=== PATIENT | female | born 1995 | race Caucasian/White ===

== ENCOUNTER 2022-01-09 13:48 | Emergency (ER) | payer MEDICAID ==
[~2022-01-09] VITALS: Ht 167.6 cm; Wt 73.0 kg
[2022-01-09] MEDS ORDERED: SODIUM CHLORIDE 0.9% 1,000 ML IV ONE ×2 (14:00→19:15)
[2022-01-09 14:23] LABS: BASOPHILS % 0.8 % (0.0-2.0); EOSINOPHILS % 5.1 % (0.0-5.0); HEMATOCRIT. 34.3 % (36.0-48.0); HEMOGLOBIN. 11.6 g/dL (12.0-16.0); LYMPHOCYTES % 30.1 % (20.0-50.0); MEAN CORPUSCULAR HEMOGLOBIN 32.1 pg (28.0-32.0); MEAN CORPUSCULAR VOLUME 94.6 fL (81.0-99.0); MEAN PLATELET VOLUME 8.4 fl (7.4-10.4); MONOCYTES % 5.9 % (2.0-8.0); NEUTROPHILS % 58.1 % (40.0-76.0); PLATELET 195 x1000/uL (130-400); RED BLOOD CELL COUNT 3.62 mill/uL (4.2-5.4); RED CELL DISTRIBUTION WIDTH 12.7 % (11.6-14.6)
[2022-01-09 14:28] LABS: CHLORIDE 111 mEq/L (98-107)
[2022-01-09 14:32] LABS: ETHANOL BLOOD < 10 mg/dL
[2022-01-09 14:33] LABS: HCG SCREEN NEGATIVE
[2022-01-09] MEDS ORDERED: ONDANSETRON HCL 4MG/2ML INJ IV ONE (19:15)
[2022-01-09] MEDS ORDERED: NALO4SPR BOTHNSTRLS (20:10)
[2022-01-09 21:28] VITALS: BP 109/69
== END 2022-01-09 22:51 | disposition home or self-care (01) ==
LOC: EDBD 13:48 → ER 13:48
DX: T40.601A Poisoning by unspecified narcotics, accidental (unintentional), initial encounter (principal); G92.8 Other toxic encephalopathy; E11.65 Type 2 diabetes mellitus with hyperglycemia; Y92.018 Other place in single-family (private) house as the place of occurrence of the external cause
CPT/HCPCS: 36415; 70450; 80053; 80307; 80320; 80329; 84703; 85025; 96361; 96374; 99284; J2405; J7030; G0480

== ENCOUNTER 2022-09-24 22:58 | Emergency (ER) | payer MEDICAID ==
[~2022-09-24] VITALS: Ht 163.8 cm; Wt 58.1 kg
[~2022-09-24 22:58] MED LIST: NALO4SPR BOTHNSTRLS
[2022-09-25 01:03] LABS: BASOPHILS % 0.5 % (0.0-2.0); EOSINOPHILS % 1.3 % (0.0-5.0); HEMATOCRIT. 32.9 % (36.0-48.0); HEMOGLOBIN. 11.1 g/dL (12.0-16.0); LYMPHOCYTES % 13.2 % (20.0-50.0); MEAN CORPUSCULAR HEMOGLOBIN 31.7 pg (28.0-32.0); MEAN CORPUSCULAR VOLUME 94.1 fL (81.0-99.0); MEAN PLATELET VOLUME 7.6 fl (7.4-10.4); MONOCYTES % 5.8 % (2.0-8.0); NEUTROPHILS % 79.2 % (40.0-76.0); PLATELET 368 x1000/uL (130-400); RED BLOOD CELL COUNT 3.49 mill/uL (4.2-5.4); RED CELL DISTRIBUTION WIDTH 12.5 % (11.6-14.6)
[2022-09-25 01:20] LABS: CHLORIDE 105 mEq/L (98-107)
[2022-09-25 01:21] LABS: HCG SCREEN NEGATIVE
[2022-09-25] MEDS ORDERED: KETOROLAC 60MG/2ML VIAL IM ONE (01:45)
[2022-09-25 02:30] LABS: CLARITY URINE CLOUDY (CLEAR); COLOR URINE YELLOW (YELLOW); KETONES URINE 2+ (NEGATIVE); LEUKOCYTE ESTERASE URINE NEGATIVE (NEGATIVE); NITRITE URINE POSITIVE (NEGATIVE); OCCULT BLOOD URINE TRACE (NEGATIVE); PROTEIN URINE TRACE (NEGATIVE); SPECIFIC GRAVITY URINE 1.027 (1.005-1.030)
[2022-09-25 02:43] VITALS: BP 113/70
[2022-09-25] MEDS ORDERED: CEFTRIAXONE SODIUM 1 G/VIAL IM ONE (02:45)
[2022-09-25] MEDS ORDERED: LIDOCAINE HCL 1% 20ML VIAL (Pyxis) INJ INFIL ONE (02:45)
[2022-09-25] MEDS ORDERED: LIDOCAINE HCL 1% 20ML VIAL (Pyxis) INJ INFIL NR (03:00)
[2022-09-25] MEDS ORDERED: LIDOCAINE HCL 1% 10 MG/ML 10ML VIAL IJ NR (03:00)
[2022-09-25] MEDS ORDERED: CEFP200T13 MT (03:57)
== END 2022-09-25 04:40 | disposition home or self-care (01) ==
LOC: ER 22:58
DX: N10 Acute pyelonephritis (principal)
CPT/HCPCS: 36415; 80053; 81003; 81025; 83690; 84703; 85025; 96372; 99284; J0696; J1885; J3490

== ENCOUNTER 2024-04-26 20:29 | Emergency (ER) | payer MEDICAID ==
[~2024-04-26] VITALS: Ht 165.1 cm; Wt 73.0 kg
[~2024-04-26 20:29] MED LIST changes: +CEFP200T13 MT
[2024-04-26 20:32] VITALS: O2SAT 99
[2024-04-26 21:45] LABS: BASOPHILS % 0.9 % (0.0-2.0); EOSINOPHILS % 4.4 % (0.0-5.0); HEMATOCRIT. 30.8 % (36.0-48.0); HEMOGLOBIN. 10.1 g/dL (12.0-16.0); LYMPHOCYTES % 23.5 % (20.0-50.0); MEAN CORPUSCULAR HEMOGLOBIN 29.3 pg (28.0-32.0); MEAN CORPUSCULAR HGB CONC 32.7 g/dL (31.0-37.0); MEAN CORPUSCULAR VOLUME 89.7 fL (81.0-99.0); MEAN PLATELET VOLUME 7.3 fl (7.4-10.4); MONOCYTES % 5.6 % (2.0-8.0); NEUTROPHILS % 65.6 % (40.0-76.0); PLATELET 537 x1000/uL (130-400); RED BLOOD CELL COUNT 3.44 mill/uL (4.2-5.4); WHITE BLOOD COUNT 7.4 x1000/uL (4.5-11.0)
[2024-04-26 21:51] LABS: CHLORIDE 106 mEq/L (98-107); POTASSIUM 3.6 mEq/L (3.5-5.1); SODIUM 139 mEq/L (136-145)
[2024-04-26 21:52] LABS: CALCIUM 9.5 mg/dL (8.7-10.4); CARBON DIOXIDE 28 mEq/L (21-32)
[2024-04-26 21:57] LABS: GLUCOSE 101 mg/dL (70-105); UREA NITROGEN BLOOD 14 mg/dL (9-23)
[2024-04-26 21:59] LABS: ALANINE AMINOTRANSFERASE 28 IU/L (10-49); ASPARTATE AMINOTRANSFERASE 25 IU/L (<34); BILIRUBIN TOTAL 0.3 mg/dL (0.1-1.0)
[2024-04-26 22:01] LABS: BILIRUBIN DIRECT < 0.1 mg/dL (<=3.0)
[2024-04-26 22:20] VITALS: BP 123/71; PULSE 84; RESP 14; TEMP 98.4
== END 2024-04-26 22:28 | disposition home or self-care (01) ==
LOC: ER 20:29
DX: R60.9 Edema, unspecified (principal)
CPT/HCPCS: 80076; 80048; 85025; 86850; 86900; 86901; 36415; 99283; Z7610 ×2